=== PATIENT | female | born 1975 | race African-American/Black ===

== ENCOUNTER 2022-03-05 20:26 | Observation (INO) | payer BC ==
[~2022-03-05] VITALS: Ht 175.3 cm; Wt 76.2 kg
[2022-03-05 20:59] VITALS: BP 113/71
[2022-03-05 21:15] VITALS: BP 113/71
[2022-03-05] MEDS ORDERED: ONDANSETRON HCL INJ 2MG/ML 2ML 2 MG/ML VIAL IV PRN (21:15)
[2022-03-05] MEDS ORDERED: ACETAMINOPHEN 325 MG TAB PO PRN (21:15)
[2022-03-05] MEDS ORDERED: HYDRALAZINE HCL 20 MG/ML VIAL IV PRN (21:15)
[2022-03-05 21:35] VITALS: BP 113/71
[2022-03-05] MEDS ORDERED: MARLISSA-28 TA1 EACH PO (22:04)
[2022-03-05] MEDS ORDERED: IBUPROFEN800 MG PO (22:04)
[2022-03-05] MEDS ORDERED: Morphine 4mg INJECTION 4 MG/ML INJ IV PRN (22:45)
[2022-03-05] MEDS: SODIUM CHLORIDE 0.9% 1000ML 1,000 ML IV SCH (23:05)
[2022-03-06] VITALS (8 sets, daily range): BP systolic 100–129; BP diastolic 52–86
[2022-03-06] MEDS ORDERED: HYDROCORTISONE ACETATE 25 MG/SUPP.RECT SUPP RC STA (00:02)
[2022-03-06] MEDS ORDERED: DIAZEPAM 2 MG TAB PO ONE (00:15)
[2022-03-06] MEDS ORDERED: HYDROMORPHONE 1MG/1ML INJ IV PRN (00:30)
[2022-03-06 01:51] LABS: BASOPHILS % 0.6 % (0.0-1.0); EOSINOPHILS % 0.3 % (0.0-6.0); HEMATOCRIT 33.7 % (34.2-44.1); HEMOGLOBIN 10.6 g/dL (12.0-16.0); LYMPHOCYTES # (AUTO) 0.7 (1.0-3.2); LYMPHOCYTES % 19.1 % (18.0-39.1); MEAN CORPUSCULAR HEMOGLOBIN 28.1 pg (28-32); MEAN CORPUSCULAR HGB CONC 31.5 g/dL (31-35); MEAN CORPUSCULAR VOLUME 89.4 fL (81-99); MONOCYTES # (AUTO) 0.3 (0.2-0.8); MONOCYTES % 8.6 % (4.4-11.3); NEUTROPHILS # (AUTO) 2.6 (2.1-6.9); NEUTROPHILS % 71.1 % (38.7-80.0); PLATELET COUNT 164 x10e3/uL (140-360); RED BLOOD COUNT 3.77 x10e6/uL (3.6-5.1); RED CELL DISTRIBUTION WIDTH 13.8 % (11.7-14.4)
[2022-03-06] MEDS ORDERED: HYDROMORPHONE 2MG/ML 2 MG/ML ML IV ONE (02:00)
[2022-03-06] MEDS: HYOSCYAMINE 0.125 MG TAB SL PRN ×2 (03:26→03:28)
[2022-03-06] MEDS ORDERED: DIAZEPAM 5 MG TAB PO ONE (04:30)
[2022-03-06 05:49] LABS: BASOPHILS % 0.5 % (0.0-1.0); EOSINOPHILS % 0.3 % (0.0-6.0); HEMOGLOBIN 10.3 g/dL (12.0-16.0); LYMPHOCYTES # (AUTO) 0.5 (1.0-3.2); MEAN CORPUSCULAR HEMOGLOBIN 28.1 pg (28-32); MEAN CORPUSCULAR HGB CONC 31.2 g/dL (31-35); MEAN CORPUSCULAR VOLUME 89.9 fL (81-99); MONOCYTES # (AUTO) 0.4 (0.2-0.8); MONOCYTES % 9.9 % (4.4-11.3); NEUTROPHILS # (AUTO) 2.9 (2.1-6.9); PLATELET COUNT 170 x10e3/uL (140-360); RED BLOOD COUNT 3.67 x10e6/uL (3.6-5.1)
[2022-03-06 06:07] LABS: ALBUMIN 2.9 g/dL (3.5-5.0); CALCIUM 7.7 mg/dL (8.4-10.2); CREATININE, SERUM 0.72 mg/dL (0.57-1.11)
[2022-03-06 06:19] LABS: FERRITIN 131.88 ng/mL (4.63-204.00)
[2022-03-06] MEDS: HYDROMORPHONE 1MG/1ML INJ IV PRN ×2 (07:55→11:35)
[2022-03-06] MEDS ORDERED: HYDROCORTISONE ACETATE 25 MG/SUPP.RECT SUPP RC SCH (09:00)
[2022-03-06] MEDS: SODIUM CHLORIDE 0.9% 1000ML 1,000 ML IV SCH ×2 (11:35→15:20)
[2022-03-06] MEDS ORDERED: POTASSIUM CHLORIDE 10MEQ/100ML 100 ML INJ ONE (12:03)
[2022-03-06] MEDS ORDERED: BUPIVACAINE 0.5%/EPI 30 ML SDV INJ ONE (12:41)
[2022-03-06] MEDS ORDERED: LIDOCAINE HCL 1% 30ML-PF VIAL ONE (12:41)
[2022-03-06] MEDS ORDERED: LIDOCAINE JELLY 2% 10ML URO-JET ONE ×2 (12:41→13:11)
[2022-03-06] MEDS ORDERED: MIDAZOLAM HCL 2 MG/2 ML VIAL ONE (13:15)
[2022-03-06] MEDS ORDERED: Morphine 10mg syringe 10 MG/ML INJ ONE (13:15)
[2022-03-06] MEDS ORDERED: FENTANYL CITRATE/PF 100MCG/2 ML INJ ONE (13:15)
[2022-03-06] MEDS ORDERED: LIDOCAINE HCL 2% LOCAL INJ 5 ML SDV VIAL INJ ONE (13:28)
[2022-03-06] MEDS ORDERED: PROPOFOL IV EMULSION 10 MG/ML 20 ML VIAL ONE (13:28)
[2022-03-06] MEDS ORDERED: ONDANSETRON HCL INJ 2MG/ML 2ML 2 MG/ML VIAL ONE (13:28)
[2022-03-06] MEDS ORDERED: POVIDONE IODINE 0.05% 0.05 % ML PO ONE (13:28)
[2022-03-06] MEDS ORDERED: EPHEDRINE SULFATE INJ 50 MG/ML VIAL ONE (13:28)
[2022-03-06] MEDS ORDERED: METOCLOPRAMIDE HCL 10 MG/2ML VIAL ONE (13:28)
[2022-03-06] MEDS ORDERED: SEVOFLURANE INHAL SOLN 250 ML PEN BTL ONE (13:28)
[2022-03-06] MEDS ORDERED: ACETAMINOPHEN 1000 MG/100 ML IV PRN (13:45)
[2022-03-06] MEDS ORDERED: HYDROMORPHONE 0.2MG/ML-SOD CHL 30ML PCA SYRINGE IV PRN (13:45)
[2022-03-06] MEDS ORDERED: NALOXONE HCL INJ 0.4 MG/ML AMP IV PRN (13:45)
[2022-03-06] MEDS ORDERED: HYDROMORPHONE 0.2MG/ML-SOD CHL 30ML PCA SYRINGE IV ONE (14:15)
[2022-03-06] MEDS: HYDROMORPHONE 0.2MG/ML-SOD CHL 30ML PCA SYRINGE IV PRN (14:23)
[2022-03-06] MEDS: IRON SUCROSE 100 MG in SODIUM CHLORIDE 0.9% 100 ML IV SCH (15:20)
[2022-03-06] MEDS ORDERED: POTASSIUM CHLORIDE 10MEQ/100ML 100 ML IV ONE (17:00)
[2022-03-06] MEDS: DIPHENHYDRAMINE HCL INJ 50 MG/ML VIAL IV PRN (20:15)
[2022-03-07] VITALS (7 sets, daily range): BP systolic 109–121; BP diastolic 61–79
[2022-03-07] MEDS: DIPHENHYDRAMINE HCL INJ 50 MG/ML VIAL IV PRN ×3 (00:28→09:02)
[2022-03-07] MEDS: SODIUM CHLORIDE 0.9% 1000ML 1,000 ML IV SCH ×2 (03:53→09:45)
[2022-03-07] MEDS ORDERED: HYOSCYAMINE 0.125 MG TAB SL ONE (05:00)
[2022-03-07 05:59] LABS: BASOPHILS % 0.3 % (0.0-1.0); HEMATOCRIT 28.8 % (34.2-44.1); HEMOGLOBIN 9.4 g/dL (12.0-16.0); LYMPHOCYTES # (AUTO) 0.5 (1.0-3.2); MEAN CORPUSCULAR HEMOGLOBIN 28.2 pg (28-32); MEAN CORPUSCULAR HGB CONC 32.6 g/dL (31-35); MEAN CORPUSCULAR VOLUME 86.5 fL (81-99); MONOCYTES # (AUTO) 0.2 (0.2-0.8); MONOCYTES % 6.3 % (4.4-11.3); NEUTROPHILS % 80.1 % (38.7-80.0); PLATELET COUNT 170 x10e3/uL (140-360); RED BLOOD COUNT 3.33 x10e6/uL (3.6-5.1); RED CELL DISTRIBUTION WIDTH 14.3 % (11.7-14.4)
[2022-03-07 06:21] LABS: ANION GAP 17.6 mmol/L (8-16); CALCIUM 7.9 mg/dL (8.4-10.2); CREATININE, SERUM 0.98 mg/dL (0.57-1.11); POTASSIUM 3.6 mmol/L (3.5-5.1)
[2022-03-07] MEDS: HYDROMORPHONE 0.2MG/ML-SOD CHL 30ML PCA SYRINGE IV PRN (07:32)
[2022-03-07] MEDS: IRON SUCROSE 100 MG in SODIUM CHLORIDE 0.9% 100 ML IV SCH (12:30)
[2022-03-07] MEDS ORDERED: OSELTAMIVIR PHOSPHATE 75 MG CAP PO ONE (12:45)
[2022-03-07] MEDS: OSELTAMIVIR PHOSPHATE 75 MG CAP PO SCH (20:47)
[2022-03-07] MEDS: IBUPROFEN 400 MG TAB PO PRN (20:49)
[2022-03-08 00:58] VITALS: BP 113/63
[2022-03-08 05:42] VITALS: BP 108/62
[2022-03-08] MEDS: OSELTAMIVIR PHOSPHATE 75 MG CAP PO SCH ×2 (08:54→16:46)
[2022-03-08] MEDS: IBUPROFEN 400 MG TAB PO PRN (08:57)
[2022-03-08] MEDS ORDERED: HYDROCODONE/APAP 7.5MG-325MG 1 EA TAB PO PRN (10:15)
[2022-03-08] MEDS ORDERED: HYDROMORPHONE 1MG/1ML INJ IV PRN (10:15)
[2022-03-08 10:22] VITALS: BP 139/83
[2022-03-08 12:00] VITALS: BP 127/74
[2022-03-08] MEDS ORDERED: PANTOPRAZOLE SOD 40 MG TABEC PO SCH (13:00)
[2022-03-08 18:46] VITALS: BP 135/79
== END 2022-03-08 20:25 | disposition home or self-care (01) ==
LOC: MED/SURG2 20:45 → INTOOBSV 20:45
PROVIDERS: ADMIT Internal Medicine; ATTEND Internal Medicine
DX: K64.5 Perianal venous thrombosis (principal); K62.3 Rectal prolapse; D64.9 Anemia, unspecified; K59.09 Other constipation; D62 Acute posthemorrhagic anemia; E87.6 Hypokalemia; J10.1 Influenza due to other identified influenza virus with other respiratory manifestations; Z20.822 Contact with and (suspected) exposure to COVID-19; Z01.818 Encounter for other preprocedural examination
CPT/HCPCS: 0223U; 36415 ×3; 46260; 46700; 71045; 80048; 80053; 82607; 82728; 82746; 83540; 84466; 85025 ×2; 85045; 87400; 88304; 94799; C9113 ×3; G0378 ×4; J0131; J0690; J0694 ×3; J1170; J1200 ×2; J1756 ×2; J2001 ×2; J2250; J2270 ×2; J2405; J2704; J2765; J3010; J3480; J7030 ×4; J7050 ×2; S0164